=== PATIENT | male | born 1955 | race Caucasian/White ===

== ENCOUNTER 2017-07-06 06:01 | Inpatient (IN) | payer OTHER ==
[2017-06-17 13:43] VITALS: BMI 31.0
--- NOTE | 2017-06-17 14:25 | PAT Medication Instructions ---
Service Date Jun 17, 2017. Current Home Medication List Albuterol Hfa (Ventolin Hfa), 2 PUFFS INH Q6H PRN for SOB/Wheezing Alprazolam (Xanax), 0.5 MG PO DAILY PRN for Anxiety/Agitation Aspirin (Aspirin 81), 1 TAB PO QAM Atorvastatin (Lipitor), 20 MG PO QPM Cetirizine (Zyrtec), 10 MG PO DAILY PRN for sinus congestion Clopidogrel (Plavix), 75 MG PO QAM Cyclobenzaprine Hcl (Flexeril), 1 TAB PO TID PRN for Muscle Spasms Dexlansoprazole (Dexilant), 1 TAB PO QAM Fluoxetine (Prozac), 40 MG PO QAM Gabapentin (Neurontin), 300 MG PO QAM Magnesium Oxide (Mag-Ox), 400 MG PO QAM Sitagliptin Phosphate (Januvia), 100 MG PO QAM Trazodone Hcl (Trazodone), 50 MG PO QPM [allergy shots], 1 DOSE INJ [id number] Medication Instructions For Your Scheduled Surgery -Contact your cardiolgist for instructions for: Clopidogrel (Plavix), 75 MG PO QAM -Continue as directed: [allergy shots], 1 DOSE INJ [id number] - Hold the following medications the morning of surgery: Cetirizine (Zyrtec), 10 MG PO DAILY PRN for sinus congestion Cyclobenzaprine Hcl (Flexeril), 1 TAB PO TID PRN for Muscle Spasms Magnesium Oxide (Mag-Ox), 400 MG PO QAM Sitagliptin Phosphate (Januvia), 100 MG PO QAM - Take the following medications the morning of surgery with a sip of water: Albuterol Hfa (Ventolin Hfa), 2 PUFFS INH Q6H PRN for SOB/Wheezing (if needed, and bring t with you to the hospital) Alprazolam (Xanax), 0.5 MG PO DAILY PRN for Anxiety/Agitation (if needed) Aspirin (Aspirin 81), 1 TAB PO QAM Dexlansoprazole (Dexilant), 1 TAB PO QAM Fluoxetine (Prozac), 40 MG PO QAM Gabapentin (Neurontin), 300 MG PO QAM - Take the following medications as scheduled the night before surgery: Albuterol Hfa (Ventolin Hfa), 2 PUFFS INH Q6H PRN for SOB/Wheezing (if needed) Alprazolam (Xanax), 0.5 MG PO DAILY PRN for Anxiety/Agitation (if needed) Atorvastatin (Lipitor), 20 MG PO QPM Cetirizine (Zyrtec), 10 MG PO DAILY PRN for sinus congestion (if needed) Cyclobenzaprine Hcl (Flexeril), 1 TAB PO TID PRN for Muscle Spasms (if needed) Trazodone Hcl (Trazodone), 50 MG PO QPM If you have any questions please call us at [phone] or [phone] or [phone]
--- NOTE | 2017-06-17 15:02 | DIAGNOSTIC IMAGING REPORT ---
CHEST 2 VIEWS ROUTINE CLINICAL HISTORY: PAT COMPARISON STUDY: No previous studies for comparison. FINDINGS: The heart is normal in size. There are postsurgical changes of a midline sternotomy. There is a small right pleural effusion. Linear bibasilar opacities are likely atelectatic there is no lobar consolidation. There is no overt failure.[ IMPRESSION: 1. Small right pleural effusion 2. Linear bibasilar opacities, likely atelectatic Electronically signed by: Cornelius Altamirano M.D. 06/17/2017 3:01 PM Dictated Date/Time: 06/17/2017 3:00 PM
[2017-06-17 15:50] LABS: BASO % 0.3 %; BASO ABS # 0.02 K/uL (0-0.2); EOS % 4.1 %; EOS ABS # 0.31 K/uL (0-0.5); HEMATOCRIT 40.7 % (42-52); HEMOGLOBIN 13.8 g/dL (14.0-18.0); IG# 0.04 K/uL (0.00-0.02); LYMPH % 20.6 %; LYMPH ABS # 1.54 K/uL (1.2-3.4); MEAN CELL VOLUME 86.8 fL (80-100); MEAN CORPUSCULAR HEMOGLOBIN 29.4 pg (25-34); MEAN CORPUSCULAR HGB CONC 33.9 g/dl (32-36); MEAN PLATELET VOLUME 9.5 fL (7.4-10.4); MONO % 9.5 %; MONO ABS # 0.71 K/uL (0.11-0.59); NEUT ABS # 4.86 K/uL (1.4-6.5); PLATELET COUNT 185 K/uL (130-400); RED CELL DISTRIBUTION WIDTH CV 14.4 % (11.5-14.5); RED CELL DISTRIBUTION WIDTH SD 45.6 fL (36.4-46.3); WHITE BLOOD COUNT 7.48 K/uL (4.8-10.8)
[2017-06-17 15:58] LABS: CREATININE 1.39 mg/dl (0.60-1.40); POTASSIUM 4.3 mmol/L (3.5-5.1)
[2017-07-06] VITALS (10 sets, daily range): BP systolic 95–136; BP diastolic 59–96; PULSE 65–93; TEMP 36.4–36.9; O2SAT 89–95; Ht 175.3 cm; Wt 95.8 kg
[~2017-07-06] VITALS: Ht 175.3 cm; Wt 95.8 kg
[~2017-07-06 06:01] MED LIST: ALPR-411 PO; ASPI-435 PO; ATOR-22 PO; CEFAZOLIN 2000MG IV PUSH 15 ML IV SCH; CETI10TA84 PO; CLOP1TAB15 PO; CYCL10TA6 PO; DEXL60CA4 PO; FLUO20CA35 PO; GABA-113 PO; LACTATED RINGER'S 1000ML 1,000 ML IV SCH; MAGN400T6 PO; SITA100T3 PO; TRAZ50TA35 PO; VNTHFA/IN INH; allergy shots INJ
[2017-07-06] MEDS ORDERED: FENTANYL CITRATE INJ 50 MCG/1 ML 2 ML VIAL ONE ×2 (06:43→08:01)
[2017-07-06] MEDS ORDERED: MIDAZOLAM HCL 1 MG/ML 2ML VIAL ONE (06:43)
[2017-07-06] MEDS ORDERED: BACITRACIN 50000 UNIT VIAL ONE (06:55)
[2017-07-06] MEDS ORDERED: BUPIVACAINE/EPINEPHRINE 0.5% MPF 1:200,000 30 ML VIAL ONE (06:55)
--- NOTE | 2017-07-06 07:27 | History & Physical Bridge Note ---
H&P Re-Evaluation Bridge Note: I have examined the patient, reviewed the History & Physical and in the interval since the performance of the History & Physical I have noted the following changes of clinical significance: No changes noted
--- NOTE | 2017-07-06 07:30 | History and Physical ---
History & Physical Date Jul 06, 2017. Chief Complaint spinal stenosis History of Present Illness The patient is a 61 year old male with complaints of back and leg pain Additional History Hepatic Disease: No Endocrine Disorder: No Kidney Disease: No Hypertension: No Heart Disease: No Bleeding Tendencies: No Infectious Diseases: No Allergies Coded Allergies: No Known Allergies (Unverified , 06/17/17) Home Medications Scheduled Aspirin (Aspirin 81), 1 TAB PO QAM Atorvastatin (Lipitor), 20 MG PO QPM Clopidogrel (Plavix), 75 MG PO QAM Dexlansoprazole (Dexilant), 1 TAB PO QAM Fluoxetine (Prozac), 40 MG PO QAM Gabapentin (Neurontin), 300 MG PO QAM Magnesium Oxide (Mag-Ox), 400 MG PO QAM Sitagliptin Phosphate (Januvia), 100 MG PO QAM Trazodone Hcl (Trazodone), 50 MG PO QPM [allergy shots], 1 DOSE INJ [id number] Scheduled PRN Albuterol Hfa (Ventolin Hfa), 2 PUFFS INH Q6H PRN for SOB/Wheezing Alprazolam (Xanax), 0.5 MG PO DAILY PRN for Anxiety/Agitation Cetirizine (Zyrtec), 10 MG PO DAILY PRN for sinus congestion Cyclobenzaprine Hcl (Flexeril), 1 TAB PO TID PRN for Muscle Spasms Physical Examination Skin: warm/dry, no rash Eyes: normal inspection, EOMI, sclerae normal ENT: normal ENT inspection, pharynx normal Head: normocephalic, atraumatic Neck: supple, no adenopathy, trachea midline Respiratory/Chest: lungs clear, normal breath sounds, no respiratory distress Cardiovascular: regular rate, rhythm, no edema, no murmur Abdomen / GI: normal bowel sounds, non tender Back: normal inspection Extremities: normal inspection, normal range of motion Neurologic/Psych: no motor/sensory deficits, alert, normal reflexes, oriented x 3 Diagnosis spinal stenosis Plan of Treatment L5-S1 decompression and fusion
[2017-07-06] MEDS ORDERED: METOPROLOL TARTRATE 1 MG/ML VIAL ONE ×2 (07:40→08:28)
[2017-07-06] MEDS ORDERED: FENTANYL CITRATE INJ 50 MCG/1 ML 2 ML VIAL IV PRN (08:00)
[2017-07-06] MEDS ORDERED: ATROPINE SULFATE 0.1 MG/ML 5ML SYR IV PRN (08:00)
[2017-07-06] MEDS ORDERED: MEPERIDINE HCL 25 MG/ML CARP IV PRN (08:00)
[2017-07-06] MEDS ORDERED: EpHEDrine SULFATE INJ 50 MG/ML AMP IV PRN (08:00)
[2017-07-06] MEDS ORDERED: HYDROmorphone INJ 1 MG/ML SYR IV PRN (08:00)
[2017-07-06] MEDS ORDERED: ONDANSETRON INJ 2 MG/ML 2 ML VIAL IV PRN ×2 (08:00→09:30)
[2017-07-06] MEDS ORDERED: LABETALOL HCL IV 5 MG/ML 20ML IV PRN (08:00)
[2017-07-06] MEDS ORDERED: HYDROmorphone INJ 2 MG/ML SYR/VIAL ONE ×2 (08:01→09:19)
[2017-07-06] MEDS ORDERED: DEXAMETHASONE SOD INJ 4 MG/ML VIAL ONE (08:28)
[2017-07-06] MEDS ORDERED: PROPOFOL IV EMULSION 10 MG/ML 20 ML VIAL IV ONE (08:28)
[2017-07-06] MEDS ORDERED: LIDOCAINE HCL 2% 2 ML VIAL (20MG/ML) ONE (08:28)
[2017-07-06] MEDS ORDERED: ONDANSETRON INJ 2 MG/ML 2 ML VIAL ONE ×2 (08:28→09:20)
[2017-07-06] MEDS ORDERED: EpHEDrine SULFATE 50MG/5ML SYR ONE ×2 (08:28→09:20)
[2017-07-06] MEDS ORDERED: FLOSEAL HEMOSTATIC MATRIX 10ML TOP ONE (09:08)
[2017-07-06] MEDS ORDERED: NEOSTIGMINE METHYLSULFATE 1 MG/ML 10ML VIAL ONE (09:20)
[2017-07-06] MEDS ORDERED: GLYCOPYRROLATE INJ 0.2 MG/ML VIAL ONE (09:20)
[2017-07-06] MEDS: SODIUM CHLORIDE 0.9% 1000ML 1,000 ML IV SCH ×3 (09:21→23:07)
[2017-07-06] MEDS ORDERED: SODIUM CHLORIDE 0.9% 1000ML 1,000 ML IV SCH (09:21)
--- NOTE | 2017-07-06 09:21 | [facility] Operative Report ---
Operative Report Operative Date Jul 06, 2017. Pre-Operative Diagnosis Spinal Stenosis Post-Operative Diagnosis Spinal Stenosis Procedure(s) Performed #1 lumbar decompression medial facetectomy foraminotomies L4 5 L5-S1. #2 posterior spinal fusion L5-S1. #3 placement posterior instrumentation L5-S1. #4 interbody fusion L5-S1. #5 placement peek cage 11 x 22 mm L5-S1. #6 placement of locally harvested morcellized autograft in the posterior lateral gutters. #7 placement infuse collagen sponge combined mass graft in the posterior lateral gutters and osteo-lamp bone graft in the interbody space. Surgeon Renewable Energy Engineer Surgeon(s) Josselyn Goetz PA-C Estimated Blood Loss 25ML Findings Spinal stenosis Specimens None per surgeon Anesthesia Type General Description of Procedure Patient was met with preoperatively case discussed all questions addressed. After informed consent obtained patient was taken to the operative suite underwent intubation and placed in a prone position on the Ismael table on top of the Delfin frame. All bony prominences were well-padded the eyes inspected to ensure no external pressure placed upon them. This point the lumbar spine was prepped and draped in normal sterile fashion. Sharp dissection with the assistance of Bovie cautery was performed onto an exposing the lamina and transverse processes of L5 and sacral alar bilaterally. From a caudal to cephalad fashion complete laminectomy of L5 partial laminectomy of L4 was performed addressing severe lateral recess and foraminal stenosis. After this complete pedicle screws were placed in L5 and S1 levels bilaterally. The processes alfredito was then placed. Through a transforaminal approach and left complete discectomy of L5 S1 was performed endplates graded to subcortical bleeding bone and a 11 x 22 mm peek cage filled with osteal bone graft tapped in position. The rods were then locked in the final position bilaterally. The transverse processes of L5 and the sacral alar burred to subcortical bleeding bone. Infuse collagen sponge mass graft and locally harvested morcellized R graft was placed in the posterior lateral gutters. A 15 round KRAIG drain inserted. Incision was then closed with 1 Vicryl in the fascia 2-0 Vicryl subcutaneously and 4-0 Monocryl for final skin closure Steri-Strips dressings placed. Patient awakened taken PACU stable condition. Please note Josselyn Linn was present at the entire procedure involved in patient positioning complex portions of the surgery and final skin closure. I attest to the content of the Intraoperative Record and any orders documented therein. Any exceptions are noted below.
[2017-07-06] MEDS ORDERED: PROMETHAZINE HCL INJ 12.5 MG in SODIUM CHLORIDE 0.9% 50ML 50 ML IV PRN (09:30)
[2017-07-06] MEDS ORDERED: METOCLOPRAMIDE HCL INJ 5 MG/ML 2 ML VIAL IV PRN (09:30)
[2017-07-06] MEDS ORDERED: ALUMINUM/MAGNESIUM SUSP 30 ML UDC PO PRN (09:30)
[2017-07-06] MEDS ORDERED: NALOXONE HCL 0.4 MG/1 ML VIAL/CARP IV PRN ×2 (09:30)
[2017-07-06] MEDS ORDERED: CETIRIZINE HCL 10 MG TAB PO PRN (09:30)
[2017-07-06] MEDS ORDERED: LORAZEPAM 0.5 MG TAB PO PRN (09:30)
[2017-07-06] MEDS ORDERED: MAGNESIUM HYDROXIDE SUSP 30 ML UDC PO PRN (09:30)
[2017-07-06] MEDS ORDERED: DO NOT ADMINISTER FLU VACCINE PRN (09:30)
[2017-07-06] MEDS ORDERED: SOD PHOSPHATE/SOD BIPHOSPHATE ENEMA 132 ML BTL PR PRN (09:30)
[2017-07-06] MEDS ORDERED: hydrOXYzine HCL 25 MG TAB PO PRN (09:30)
[2017-07-06] MEDS ORDERED: LORAZEPAM INJ 0.5 MG in SYRINGE 0 ML IV PRN (09:30)
[2017-07-06] MEDS ORDERED: DO NOT ADMINISTER PNEUMOCOCCAL VACCINE PRN (09:30)
[2017-07-06] MEDS ORDERED: BISACODYL 10 MG SUPP PR PRN (09:30)
[2017-07-06] MEDS ORDERED: ACETAMINOPHEN 500 MG TAB PO PRN (09:30)
[2017-07-06] MEDS ORDERED: FAMOTIDINE 20 MG TAB PO PRN (09:30)
[2017-07-06] MEDS ORDERED: ACETAMINOPHEN IV 100 ML IV PRN (09:30)
[2017-07-06] MEDS ORDERED: ALBUTEROL HFA 8 GM INHALER INH PRN (09:30)
[2017-07-06] MEDS ORDERED: HYDROmorphone HCL 0.5MG/ML 50 ML CASSETTE ONE (09:38)
--- NOTE | 2017-07-06 10:06 | DIAGNOSTIC IMAGING REPORT ---
INTRAOPERATIVE RADIOGRAPHS CLINICAL HISTORY: L5-S1 spinal fusion. Fluoroscopy time: 24 seconds. FINDINGS: 2 spot fluoroscopic views of the lumbar spine are presented. There has been discectomy at L5-S1 with laminectomy and posterior fusion at this level. Interpedicular screws are seen at both levels. The orthopedic hardware appears intact. An aortobiiliac stent graft is incidentally noted. IMPRESSION: Intraoperative image from L5 -S1 spinal fusion as above. Electronically signed by: Rolando Sutton M.D. 07/06/2017 10:05 AM Dictated Date/Time: 07/06/2017 10:04 AM
[2017-07-06] MEDS ORDERED: ROCURONIUM BROMIDE 10 MG/ML 5 ML VIAL IV ONE (10:31)
[2017-07-06] MEDS: HYDROmorphone HCL 0.5MG/ML 50 ML CASSETTE IV PRN ×3 (10:41→19:10)
--- NOTE | 2017-07-06 10:43 | Anesthesiology Progress Note ---
Anesthesia Post Op Note Date & Time Jul 06, 2017 at 10:43 Vital Signs Pain Intensity: 0 Vital Signs Past 12 Hours Date Time Temp Pulse Resp B/P (MAP) Pulse Ox O2 Delivery O2 Flow Rate FiO2 07/06/17 10:23 36.5 81 15 111/69 93 Nasal Cannula 4 07/06/17 10:20 36.4 07/06/17 10:16 122/69 07/06/17 10:15 86 15 07/06/17 10:15 86 15 96 07/06/17 10:11 123/73 07/06/17 10:10 85 10 96 07/06/17 10:10 85 10 07/06/17 10:06 111/71 07/06/17 10:05 82 13 07/06/17 10:05 81 13 95 07/06/17 10:01 129/70 07/06/17 10:00 86 19 94 07/06/17 10:00 86 19 07/06/17 09:56 124/83 07/06/17 09:55 85 10 07/06/17 09:55 85 10 94 07/06/17 09:51 115/81 07/06/17 09:50 86 10 07/06/17 09:50 85 10 93 07/06/17 09:46 149/79 07/06/17 09:45 88 12 07/06/17 09:45 88 12 95 07/06/17 09:41 130/93 07/06/17 09:40 91 10 07/06/17 09:40 90 10 91 07/06/17 09:36 123/86 07/06/17 09:35 87 12 146/89 93 07/06/17 09:35 88 12 07/06/17 09:30 36.4 89 16 156/89 92 Oxymask 10 07/06/17 07:16 36.6 65 20 136/96 95 Room Air Notes Mental Status: alert / awake / arousable, participated in evaluation Pt Amnestic to Procedure: Yes Nausea / Vomiting: adequately controlled Pain: adequately controlled Airway Patency, RR, SpO2: stable & adequate BP & HR: stable & adequate Hydration State: stable & adequate Anesthetic Complications: no major complications apparent
[2017-07-06] MEDS ORDERED: RXC5 PO (14:19)
--- NOTE | 2017-07-06 14:20 | Discharge Instructions ---
Discharge Instructions Date of Service Jul 06, 2017. Admission Reason for Admission: Spinal Stenosis Discharge Discharge Diagnosis / Problem: lumbar stenosis Discharge Goals Goal(s): Improve function Activity Recommendations Activity Limitations: as noted below . Instructions / Follow-Up Instructions / Follow-Up ACTIVITY RECOMMENDATIONS: SELF CARE INSTRUCTIONS AFTER THORACIC/LUMBAR FUSIONS 1. You may walk to your tolerance. It is good exercise for your legs and back. Expect some back and intermittent leg aches and pains. 2. You may perform "counter-top" level activities (make a sandwich, chiqui with a project, etc.). 3. No bending or lifting of more than 10 pounds or back twisting of any nature (roll like a log when turning in bed). 4. You may ride in a car for 20-30 minutes at a time. No driving until after your first visit with your doctor. 5. Frequent changes of position and restricting sitting to 30 minutes at a time will help limit the amount of back spasms and stiffness you may experience. 6. You may discontinue the use of ambulatory aids (cane, crutches, etc.) once your strength and confidence allow. 7. You may advertising manager the shower and let water strike your incision when you arrive home at least once daily. Do not take a tub bath, sit in a hot tub or go into a swimming pool until after your first recheck in the office. SPECIAL CARE INSTRUCTIONS: VERY IMPORTANT TO READ AND REVIEW A. Your surgical incision has been closed with a cosmetic suture under the skin that will dissolve in about 6 weeks. In 14 days, you can use a pair of clean scissors and cut the suture that is left outside of the skin at the ends of your incision. 1. The small skin tapes can be removed 7 days after surgery if they have not fallen off by that point. 2. You may keep the wound open to air as much as possible to promote healing after post-op day number 5 unless told otherwise by your doctor. 3. If you think the wound looks like it is becoming infected (redness or worsening drainage) and/or you are experiencing fever, chill or worsening back pain and muscle spasms, contact the office so that we may evaluate you as soon as possible. B. Complications are uncommon, but please contact us if you have any signs or symptoms of: 1. wound infection (fever higher than 102.5 degrees F, redness, separation of wound, drainage, or increasing pain from the incision) 2. blood clots in legs (pain, swelling, redness and warmth in legs) 3. urinary tract infection (fever higher than 102.5 degrees F, burning upon urination or increased frequency of urination) 4. nerve problems (inability to walk on your toes or heels, numbness, loss of bowel or bladder control) 5. any other symptoms that concern you C. Please call the office at if you have any concerns or questions about your operation or recovery. D. No smoking! Smoking drastically decreases the chance of a solid fusion. E. Do not take any anti-inflammatory medications (Indocin, Advil, Motrin, Aspirin, Naprosyn, etc.) as these may inhibit the chance of a solid fusion. Tylenol is okay to take for pain. MANAGING PAIN AFTER SPINAL SURGERY 1. Narcotic medication is intended for short-term use and will be provided for surgical pain. Surgical pain usually lasts for a period of 4-6 weeks. Narcotic medication includes Percocet, Vicodin, Darvocet, Tylenol #3 or Lortab. 2. Longer-term pain is more appropriately treated with non-narcotic medication such as Tylenol ES. 3. Muscle spasm is not appropriately treated with narcotics. Muscle relaxers such as Soma, Flexeril or Skelaxin can be used along with Tylenol ES. 4. Remember that we all live with some "aches and pains". This is not unusual or uncommon after an injury or as we get older. a. Back pain is expected and may include muscle spasms for 4 to 6 weeks after surgery. The pain should gradually improve. If the pain worsens for no apparent reason, please contact the office. b. Intermittent leg pain may also be experienced and should not be concerned about unless it worsens for no apparent reason. If so, please contact the office. 5. We will provide appropriate medication within the normal guidelines of their prescribed use. We will also be very cautious and aware of potential abuse and extended duration of patients' medication needs. a. Pain medications are for your comfort and to assist with sleep and rest so that the tissue can heal. They are not provided in order to return to normal activity and should not be used through the day. To do so or worsening pain at night can result from ongoing tissue damage and development of tolerance to the prescribed medicine. 6. Please allow 2-3 days to process refills. Prescriptions will not be mailed but must be picked up at the office. FOLLOW UP VISIT: Keep your scheduled follow-up appointment. Any questions, please call the office at . Current Hospital Diet Patient's current hospital diet: Diabetes Type 2 Diet Discharge Diet Recommended Diet: Regular Diet Procedures Procedures Performed: #1 lumbar decompression medial facetectomy foraminotomies L4 5 L5-S1. #2 posterior spinal fusion L5-S1. #3 placement posterior instrumentation L5-S1. #4 interbody fusion L5-S1. #5 placement peek cage 11 x 22 mm L5-S1. #6 placement of locally harvested morcellized autograft in the posterior lateral gutters. #7 placement infuse collagen sponge combined mass graft in the posterior lateral gutters and osteo-lamp bone graft in the interbody space. Pending Studies Studies pending at discharge: no Medical Emergencies . Who to Call and When: Medical Emergencies: If at any time you feel your situation is an emergency, please call 911 immediately. . Non-Emergent Contact Non-Emergency issues call your: Primary Care Provider . "Provider Documentation" section prepared by Zacarisa Cortes. .
[2017-07-06] MEDS: CEFAZOLIN IV 2,000 MG in SYRINGE 0 ML IV SCH ×2 (15:51→23:15)
[2017-07-06] MEDS: DOCUSATE SODIUM/SENNA 50/8.6MG TAB PO SCH (21:10)
[2017-07-06] MEDS: TRAZODONE HCL 50 MG TAB PO SCH (21:11)
[2017-07-06] MEDS: ATORVASTATIN 20 MG TAB PO SCH (21:11)
[2017-07-07] VITALS (7 sets, daily range): BP systolic 93–144; BP diastolic 56–72; PULSE 65–94; TEMP 36.4–37.2; O2SAT 88–95
[2017-07-07] MEDS ORDERED: HYDROmorphone INJ 0.5 MG/0.5 ML SYR IV PRN (06:00)
[2017-07-07] MEDS ORDERED: NURSING VERBAL MED ORDER ONE (06:00)
[2017-07-07] MEDS ORDERED: DC PCA SCH (06:00)
[2017-07-07] MEDS ORDERED: HYDROmorphone INJ 1 MG/ML SYR IV PRN (06:00)
[2017-07-07 06:20] LABS: EOS % 0.1 %; EOS ABS # 0.01 K/uL (0-0.5); HEMATOCRIT 36.7 % (42-52); HEMOGLOBIN 12.1 g/dL (14.0-18.0); IG# 0.07 K/uL (0.00-0.02); LYMPH % 9.4 %; LYMPH ABS # 1.38 K/uL (1.2-3.4); MEAN CELL VOLUME 88.6 fL (80-100); MEAN CORPUSCULAR HEMOGLOBIN 29.2 pg (25-34); MEAN PLATELET VOLUME 9.2 fL (7.4-10.4); MONO % 9.3 %; MONO ABS # 1.36 K/uL (0.11-0.59); NEUT % 80.7 %; PLATELET COUNT 187 K/uL (130-400); RED CELL DISTRIBUTION WIDTH CV 14.4 % (11.5-14.5); RED CELL DISTRIBUTION WIDTH SD 47.3 fL (36.4-46.3); WHITE BLOOD COUNT 14.62 K/uL (4.8-10.8)
[2017-07-07 06:56] LABS: CALCIUM 8.4 mg/dl (8.5-10.1); CREATININE 1.44 mg/dl (0.60-1.40); POTASSIUM 3.6 mmol/L (3.5-5.1)
--- NOTE | 2017-07-07 07:57 | Anesthesiology Progress Note ---
Anesthesia Post Op Note Date & Time Jul 07, 2017 at 07:57 Vital Signs Pain Intensity: 5 Vital Signs Past 12 Hours Date Time Temp Pulse Resp B/P (MAP) Pulse Ox O2 Delivery O2 Flow Rate FiO2 07/07/17 07:01 36.5 92 18 93/56 (68) 90 Room Air 07/07/17 03:28 94 Nasal Cannula 2.0 07/07/17 03:28 37.0 69 16 103/62 (76) 88 Room Air 07/06/17 23:38 36.8 87 17 101/59 (73) 91 Room Air Notes Mental Status: alert / awake / arousable Pt Amnestic to Procedure: Yes Nausea / Vomiting: adequately controlled Pain: improving with treatment Airway Patency, RR, SpO2: stable & adequate BP & HR: stable & adequate Hydration State: stable & adequate Anesthetic Complications: no major complications apparent
[2017-07-07] MEDS: ASPIRIN 81 MG ECTAB PO SCH (08:42)
[2017-07-07] MEDS: FLUOXETINE HCL 20 MG CAP PO SCH (08:42)
[2017-07-07] MEDS: SITAGLIPTIN 100 MG TAB PO SCH (08:42)
[2017-07-07] MEDS: MAGNESIUM OXIDE 400 MG TAB PO SCH (08:43)
[2017-07-07] MEDS: GABAPENTIN 300 MG CAP PO SCH (08:43)
[2017-07-07] MEDS: OXYCODONE HCL IR 5 MG TAB (IMMEDIATE RELEASE) PO PRN (08:48)
--- NOTE | 2017-07-07 11:44 | Progress Note ---
Progress Note Date of Service Jul 07, 2017. Progress Note Back pain is controlled. Leg pain improved. Vital signs stable. On exam his good strength testing appears comfortable. Assessment status post lumbar compression and fusion for plan at this time will continue physical therapy monitor his KRAIG output anticipate possible home tomorrow.
[2017-07-07] MEDS: CYCLOBENZAPRINE HCL 10 MG TAB PO PRN ×2 (13:57→20:37)
[2017-07-07] MEDS: KETOROLAC TROMETHAMINE 30 MG/ML VIAL IV PRN (13:59)
[2017-07-07] MEDS: TRAZODONE HCL 50 MG TAB PO SCH (20:37)
[2017-07-07] MEDS: DOCUSATE SODIUM/SENNA 50/8.6MG TAB PO SCH (20:37)
[2017-07-07] MEDS: ATORVASTATIN 20 MG TAB PO SCH (20:37)
[2017-07-08] VITALS (13 sets, daily range): BP systolic 108–137; BP diastolic 63–79; PULSE 71–104; TEMP 36.5–37.1; O2SAT 85–96
[2017-07-08] MEDS: CYCLOBENZAPRINE HCL 10 MG TAB PO PRN (04:53)
[2017-07-08] MEDS: OXYCODONE HCL IR 5 MG TAB (IMMEDIATE RELEASE) PO PRN (04:54)
[2017-07-08] MEDS: POLYETHYLENE (MIRALAX) 17 GM PACK PO SCH ×4 (06:31→23:59)
[2017-07-08] MEDS: GABAPENTIN 300 MG CAP PO SCH (07:26)
[2017-07-08] MEDS: SITAGLIPTIN 100 MG TAB PO SCH (07:27)
[2017-07-08] MEDS: MAGNESIUM OXIDE 400 MG TAB PO SCH (07:27)
[2017-07-08] MEDS: ASPIRIN 81 MG ECTAB PO SCH (07:27)
[2017-07-08] MEDS: FLUOXETINE HCL 20 MG CAP PO SCH (07:28)
[2017-07-08] MEDS: KETOROLAC TROMETHAMINE 30 MG/ML VIAL IV PRN (07:36)
--- NOTE | 2017-07-08 12:18 | DIAGNOSTIC IMAGING REPORT ---
CHEST ONE VIEW PORTABLE HISTORY: 61 years-old Male HYPOXIA acute hypoxia with history of spinal stenosis COMPARISON: Chest radiographs 06/17/2017 TECHNIQUE: Portable AP view of the chest FINDINGS: Cardiac silhouette is again enlarged, unchanged. Prior median sternotomy with surgical clips projecting over the left heart border. No pneumothorax or overt pulmonary edema. Persistent blunting of the right costophrenic angle suggests small pleural effusion with unchanged linear subsegmental midlung and bibasilar opacities suggesting atelectasis/scarring. Bones of the chest appear grossly intact. Calcifications project over the right axillary soft tissues. IMPRESSION: 1. No acute process. 2. Unchanged linear subsegmental bibasilar opacities suggesting atelectasis or scarring with persistent blunting of the right costophrenic angle, possibly reflecting a small right pleural effusion. The above report was generated using voice recognition software. It may contain grammatical, syntax or spelling errors. Electronically signed by: Serge Kincaid M.D. 07/08/2017 12:16 PM Dictated Date/Time: 07/08/2017 12:14 PM
--- NOTE | 2017-07-08 12:49 | Medical Consult ---
Consultation Date of Consultation: Jul 08, 2017. Attending Physician: Zacarias Cortes D.O. Reason for Consultation: hypoxemia History of Present Illness 61-year-old man with past medical history of CAD status post CABG, multiple stents last stent was about 3 years ago. Also patient has dyslipidemia and diabetes mellitus type 2 on oral hypoglycemics. Patient complained of severe lower back pain failed outpatient conservative management and presented to the hospital yesterday for an elective L5-S1 decompression and fusion Procedure went uneventful. Patient today was found by the nursing staff to have hypoxemia oxygen saturation 84 on room air and his lips were blue as per nursing staff. He was placed on oxygen 2 L oxygen saturation went to 95%. Patient slowly developed some lethargy. He is arousable but seems to be slightly lethargic. Answers all questions appropriately. And does not have any complaint at this point. Social History Smoking Status: Current Some Day Smoker Allergies Coded Allergies: No Known Allergies (Unverified , 06/17/17) Current Inpatient Medications Current Inpatient Medications Medications (Trade) Dose Ordered Sig/Zenon Route Start Time Stop Time Status Last Admin Dose Admin Promethazine HCl 12.5 mg/Sodium Chloride 50.5 ml @ 202 mls/hr Q6H PRN IV 07/06/17 09:30 08/05/17 09:29 Ondansetron HCl (Zofran Inj) 4 mg Q6H PRN IV 07/06/17 09:30 08/05/17 09:29 Metoclopramide HCl (Reglan Inj) 10 mg Q6H PRN IV 07/06/17 09:30 08/05/17 09:29 Lorazepam (Ativan Tab) 0.5 mg Q8H PRN PO 07/06/17 09:30 08/05/17 09:29 Lorazepam 0.5 mg/ Syringe 0.25 ml @ 1 mls/min Q8H PRN IV 07/06/17 09:30 08/05/17 09:29 Pneumococcal Polysaccharide Vaccine 1 ea PRN PRN N/A 07/06/17 09:30 08/05/17 09:29 Influenza Virus Vacc Triv Types A&B 1 ea PRN PRN N/A 07/06/17 09:30 08/05/17 09:29 Polyethylene (Miralax Powder Packet) 17 gm Q6 PO 3/14/18 06:00 08/07/17 05:59 07/08/17 06:31 17 GM Bisacodyl (Dulcolax Supp) 10 mg DAILY PRN TX 07/06/17 09:30 08/05/17 09:29 Magnesium Hydroxide (Milk Of Magnesia Susp) 30 ml DAILY PRN PO 07/06/17 09:30 08/05/17 09:29 Hydromorphone HCl (Dilaudid Inj) 0.5 mg Q3H PRN IV 07/07/17 06:00 07/21/17 05:59 Oxycodone HCl (Roxicodone Immediate Rel Tab) 5-10mg prn moderate to sev... Q4H PRN PO 07/07/17 06:00 07/21/17 05:59 07/08/17 04:54 10 MG Acetaminophen (Tylenol Tab) 1,000 mg Q8H PRN PO 07/06/17 09:30 08/05/17 09:29 Acetaminophen 100 ml @ 400 mls/hr Q8H PRN IV 07/06/17 09:30 08/05/17 09:29 Naloxone HCl (Narcan Inj) 0.1 mg Q5M PRN IV 07/06/17 09:30 08/05/17 09:29 Senna/Docusate Sodium (Senokot S Tab) 2 tab HS PO 07/06/17 21:00 08/05/17 20:59 07/07/17 20:37 2 TAB Sodium Biphosphate/ Sodium Phosphate (Fleet Enema) 132 ml ONE PRN TX 07/06/17 09:30 08/05/17 09:29 Hydroxyzine HCl (Vistaril Tab) 25 mg Q8H PRN PO 07/06/17 09:30 08/05/17 09:29 Al Hydroxide/Mg Hydroxide (Maalox Susp) 30 ml Q6H PRN PO 07/06/17 09:30 08/05/17 09:29 Famotidine (Pepcid Tab) 20 mg Q12H PRN PO 07/06/17 09:30 08/05/17 09:29 Diphenhydramine HCl (Benadryl Cap) 25 mg Q6H PRN PO 07/06/17 09:30 08/05/17 09:29 Albuterol (Ventolin Hfa Inhaler) 2 puffs Q6H PRN INH 07/06/17 09:30 08/05/17 09:29 Aspirin (Ecotrin Tab) 81 mg QAM PO 07/07/17 09:00 08/06/17 08:59 07/08/17 07:27 81 MG Atorvastatin Calcium (Lipitor Tab) 20 mg QPM PO 07/06/17 21:00 08/05/17 20:59 07/07/17 20:37 20 MG Cetirizine HCl (zyrTEC TAB) 10 mg DAILY PRN PO 07/06/17 09:30 08/05/17 09:29 Cyclobenzaprine HCl (Flexeril Tab) 10 mg TID PRN PO 07/06/17 09:30 08/05/17 09:29 07/08/17 04:53 10 MG Fluoxetine HCl (Prozac Cap) 40 mg QAM PO 07/07/17 09:00 08/06/17 08:59 07/08/17 07:28 40 MG Gabapentin (Neurontin Cap) 300 mg QAM PO 07/07/17 09:00 08/06/17 08:59 07/08/17 07:26 300 MG Magnesium Oxide (Mag-Ox Tab) 400 mg QAM PO 07/07/17 09:00 08/06/17 08:59 07/08/17 07:27 400 MG Sitagliptin Phosphate (Januvia Tab) 100 mg QAM PO 07/07/17 09:00 08/06/17 08:59 07/08/17 07:27 100 MG Trazodone HCl (Desyrel Tab) 50 mg QPM PO 07/06/17 21:00 08/05/17 20:59 07/07/17 20:37 50 MG Hydromorphone HCl (Dilaudid Inj) 1 mg Q3H PRN IV 07/07/17 06:00 07/21/17 05:59 Ketorolac Tromethamine (Toradol Inj) 30 mg Q6H PRN IV 07/07/17 11:45 07/12/17 11:44 07/08/17 07:36 30 MG Review of Systems Review of system Constitutional: No fever / no chills / no sweats / no weakness / no fatigue Eyes: no blurring of vision / no eye pain / no discharge / no redness ENT: no hearing loss / no epistaxis /no swallowing problems Respiratory: no cough / no wheezing / no SOB / no hemoptysis Cardiovascular: no Chest pain / no lower extremity edema / no palpitation Abdomen: no pain / no nausea / no vomiting / no constipation Musculoskeletal: no joint pain / no muscle pain / no joint swelling Genitourinary: no dysuria / no incontinence / no urinary retention Neurologic: no focal weakness / no numbness/tingling / no ataxia Psychiatric: no depression symptoms / no anxiety / no insomnia Endocrine: no excessive thirst / no excessive urination Hematologic: no abnormal bleeding / no bruising / no LN swelling Skin: No rash / no pallor Physical Exam Date Time Temp Pulse Resp B/P (MAP) Pulse Ox O2 Delivery O2 Flow Rate FiO2 07/08/17 12:06 36.7 72 16 117/71 (86) 92 Nasal Cannula 3.0 07/08/17 11:45 87 Room Air 07/08/17 10:55 93 Nasal Cannula 2.0 07/08/17 10:14 78 86 07/08/17 07:54 37.0 90 14 123/74 (90) 93 Nasal Cannula 2.0 07/08/17 07:18 83 94 Nasal Cannula 2.0 07/08/17 07:15 102 85 Room Air 07/08/17 07:15 Room Air 07/08/17 06:45 37.1 104 19 108/63 (78) 91 Nasal Cannula 4.0 07/07/17 23:14 Room Air 07/07/17 23:07 37.1 94 16 144/72 (96) 91 Room Air 07/07/17 17:05 37.2 81 16 107/58 (74) 90 Room Air 07/07/17 15:35 90 Room Air Physical examination General patient appears to be comfortable, not in acute distress, obese HEENT: Atraumatic , normocephalic /no jaundice /no pallor /anicteric /no dry mucous membrane /normal external ear inspection Neck: Supple /no swelling /central trach Heart: S1/S2 normal/regular rate and rhythm/no gallop /no rub /no murmur Lungs: Decreased air entry bilaterally and decreased chest wall expansion/no rhonchi/no rales/no wheezing/no use of accessory muscles of respiration Abdomen: Soft/nontender/no guarding/no rebound/no organomegaly/no pulsatile mass Musculoskeletal: No swelling/no edema/no tenderness/normal range of motion Neuro exam: Lethargic but easily arousable, oriented 3/cranial nerves II through XII appear to be intact/sensation intact/moves all extremities/no abnormal movements Psychiatric evaluation: No depressed mood/normal affect Skin: No rash on exposed skin area/no erythema Extremity: Normal pulse/no pitting edema/no clubbing or cyanosis Endocrine/lymphatic: No obvious lymphadenopathy /no lymphedema Laboratory Results Last 24 Hours Test 07/07/17 17:10 07/07/17 20:36 07/08/17 06:40 07/08/17 12:02 Bedside Glucose 152 mg/dl 104 mg/dl 104 mg/dl 108 mg/dl Test 07/08/17 12:32 Assessment & Plan 61-year-old man with past medical history of CAD status post CABG, multiple stents last for 3 years ago, patient also has dyslipidemia and diabetes mellitus type 2 on oral hypoglycemic, patient was diagnosed with sleep apnea but noncompliant with CPAP machine. Status post L5-S1 decompression and fusion , was found to be hypoxic and slightly lethargic today. Assessment Lumbar DJD status post L5-S1 decompression and fusion postoperative day #1 Lethargy/metabolic encephalopathy secondary to below Acute hypoxic respiratory failure secondary to below Underlying obstructive sleep apnea, obesity hypoventilation syndrome and COPD Possible underlying congestive heart failure unspecified CAD status post CABG and multiple stents last worked 3 years ago Morbid obesity Dyslipidemia Plan Status post orthopedic procedure, went uneventful full postoperative day #1 Patient tolerated procedure well with minimal blood loss As patient appears to be chronic retainer, he possibly has CO2 narcosis, will decrease oxygen supplement to saturation 90-93% only, will start patient on BiPAP and transferred to telemetry We will also check patient ABG, CT head, TSH and ammonia levels We will hold hypoglycemic medications, start patient on sliding scale insulin Obtain 2D echo and serial cardiac enzymes When okay with primary orthopedic team, patient should be started on Plavix, since last stent was 3 years ago, it is okay not to take Plavix for a few days but as soon as primary team allows will restart it Follow-up labs Ensure adequate oral/parenteral intake Pain management Physical therapy initiation as per primary orthopedic team DVT prophylaxis as per the choice of primary orthopedic team 35 minutes of critical care time was spent on this encounter
[2017-07-08 14:09] LABS: CHOLESTEROL 147 mg/dl (0-200); LDL CHOLESTEROL CALCULATED 85 mg/dl
--- NOTE | 2017-07-08 14:29 | DIAGNOSTIC IMAGING REPORT ---
HEAD WITHOUT CONTRAST (CT) CT DOSE: 655.73 mGy.cm HISTORY: Mental status change lethargy TECHNIQUE: Multiaxial CT images of the head were performed without the use of intravenous contrast. A dose lowering technique was utilized adhering to the principles of ALARA. Comparison: None. Findings: The paranasal sinuses and mastoid air cells are clear. The calvarium and skull base are intact. The ventricles and sulci are within normal limits. There is no mass, hematoma, midline shift, or acute infarct. Impression: No acute intracranial abnormality. The above report was generated using voice recognition software. It may contain grammatical, syntax or spelling errors. Electronically signed by: Hill Quezada M.D. 07/08/2017 2:28 PM Dictated Date/Time: 07/08/2017 2:27 PM
--- NOTE | 2017-07-08 16:01 | Progress Note ---
Progress Note Date of Service Jul 08, 2017. Progress Note Patient's back pain is still limiting. He states his leg symptoms are improved. On exam at this time is alert and oriented has good strength testing. Assessment status post lumbar decompression fusion. Plan at this time is pulse ox is below 90 on room air. We will be consulting the hospitalist service for further evaluation.
[2017-07-08] MEDS: ATORVASTATIN 20 MG TAB PO SCH (20:15)
[2017-07-08] MEDS: TRAZODONE HCL 50 MG TAB PO SCH (20:16)
[2017-07-08] MEDS: DOCUSATE SODIUM/SENNA 50/8.6MG TAB PO SCH (20:16)
[2017-07-09] VITALS (8 sets, daily range): BP systolic 116–128; BP diastolic 66–78; PULSE 75–89; TEMP 36.6–37; O2SAT 87–97
[2017-07-09 05:54] LABS: BASO % 0.2 %; BASO ABS # 0.02 K/uL (0-0.2); EOS % 3.6 %; EOS ABS # 0.36 K/uL (0-0.5); HEMATOCRIT 40.3 % (42-52); HEMOGLOBIN 12.8 g/dL (14.0-18.0); IG# 0.04 K/uL (0.00-0.02); LYMPH % 16.6 %; LYMPH ABS # 1.65 K/uL (1.2-3.4); MEAN CORPUSCULAR HEMOGLOBIN 28.6 pg (25-34); MEAN CORPUSCULAR HGB CONC 31.8 g/dl (32-36); MEAN PLATELET VOLUME 9.7 fL (7.4-10.4); MONO % 13.8 %; MONO ABS # 1.37 K/uL (0.11-0.59); NEUT % 65.4 %; NEUT ABS # 6.49 K/uL (1.4-6.5); PLATELET COUNT 184 K/uL (130-400); RED CELL DISTRIBUTION WIDTH CV 14.4 % (11.5-14.5); WHITE BLOOD COUNT 9.93 K/uL (4.8-10.8)
[2017-07-09] MEDS: POLYETHYLENE (MIRALAX) 17 GM PACK PO SCH ×2 (06:01→12:59)
[2017-07-09 06:37] LABS: ALBUMIN 3.1 gm/dl (3.4-5.0); CALCIUM 8.6 mg/dl (8.5-10.1); CREATININE 1.3 mg/dl (0.60-1.40); POTASSIUM 4.2 mmol/L (3.5-5.1); TOTAL PROTEIN 6.9 gm/dl (6.4-8.2)
[2017-07-09 07:45] LABS: HEMOGLOBIN A1C 7.2 % (4.5-5.6)
[2017-07-09] MEDS: ASPIRIN 81 MG ECTAB PO SCH (08:28)
[2017-07-09] MEDS: GABAPENTIN 300 MG CAP PO SCH (08:28)
[2017-07-09] MEDS: MAGNESIUM OXIDE 400 MG TAB PO SCH (08:28)
[2017-07-09] MEDS: FLUOXETINE HCL 20 MG CAP PO SCH (08:29)
--- NOTE | 2017-07-09 09:52 | Discharge Summary ---
Orthopedic Discharge Summary Admission Date/Reason Jul 06, 2017 at 07:30 Spinal Stenosis. Discharge Date/Disposition Jul 09, 2017 Home Diagnosis Principal Diagnosis: Lumbar spinal stenosis Admission Physical Exam As per Admitting History & Physical. Hospital Course Patient underwent lumbar decompression fusion tolerated this well was taken to the orthopedic floor postoperatively. Postop day #1 he was up and amatory progressive postop day #2. There were some incidents of decreased pulse ox measurements and subsequently was transferred to the PCU overnight. Appears to be stable. Lab studies within normal limits. Subsequently discharged home. Discharge orders and instructions found on the chart for further review. Discharge Instructions Please refer to the electronic Patient Visit Report (Discharge Instructions) for additional information.
--- NOTE | 2017-07-09 09:53 | Progress Note ---
Progress Note Date of Service Jul 09, 2017. Progress Note Patient appears quite comfortable this morning. He denies any significant back or leg pain. He states he feels overall markedly improved. In exam is good strength testing appears comfortable. Assessment status post lumbar decompression fusion. Plan at this time with medical clearance will allow him to discharge home today in follow-up in the office in 2 weeks as scheduled.
--- NOTE | 2017-07-09 13:50 | ECHOCARDIOGRAM REPORT ---
*NOTICE TO RECEIVING [employer] This information is strictly Confidential and protected under [place] law. [place] law prohibits you from making any further disclosure of this information unless further disclosure is expressly permitted by the written consent of the person to whom it pertains or is authorized by law. A general authorization for the release of medical or other information is not sufficient for this purpose. Hospital accepts no responsibility if the information is made available to any other person, INCLUDING THE PATIENT. Interpretation Summary * Name: JEANNIE MIR Study Date: 07/09/2017 09:01 AM BP: 117/71 mmHg * Patient Location: C.2T\S\E218\S\1 HR: 72 * : 1955 (M/d/yyyy) Gender: Male Height: 69 in * Age: 61 yrs Ethnicity: [place] Weight: 211 lb * Ordering Physician: Higinio Gomez * Referring Physician: Zacarias Cortes D.O. * Performed By: Mar Black RDCS * * Reason For Study: Congestive Heart Failure * BSA: 2.1 m2 * -- Conclusions -- * Left ventricular systolic function is normal. * Grade I diastolic dysfunction, (abnormal relaxation pattern). Procedure Details * A complete two-dimensional transthoracic echocardiogram was performed (2D, M-mode, Doppler and color flow Doppler). Left Ventricle * The left ventricle is normal in size. * There is normal left ventricular wall thickness. * Ejection Fraction = 60-65%. * Left ventricular systolic function is normal. * Grade I diastolic dysfunction, (abnormal relaxation pattern). * The left ventricular wall motion is normal. Right Ventricle * The right ventricle is normal in size and function. * The right ventricular systolic function is normal as assessed by tricuspid annular plane systolic excursion (TAPSE) (normal >1.5 cm). Atria * The left atrial size is normal. * Right atrial size is normal. Mitral Valve * The mitral valve anatomy is normal. * Significant mitral regurgitation is absent. Tricuspid Valve * The tricuspid valve is not well visualized, but is grossly normal. * Significant tricuspid regurgitation is absent. Aortic Valve * The aortic valve is normal in structure and function. * No hemodynamically significant valvular aortic stenosis. * There is no significant aortic regurgitation. Great Vessels * The aortic root is normal size. Pericardium/Pleural * There is no pericardial effusion. MMode 2D Measurements and Calculations IVSd 0.96 cm IVSs 1.4 cm LVIDd 4.0 cm LVIDs 2.4 cm LVPWd 1.2 cm LVPWs 1.8 cm IVS/LVPW 0.80 FS 40.4 % EDV(Teich) 68.3 ml ESV(Teich) 19.3 ml EF(Teich) 71.7 % EDV(cubed) 62.0 ml ESV(cubed) 13.1 ml EF(cubed) 78.8 % % IVS thick 49.1 % % LVPW thick 50.8 % LV mass(C)d 139.7 grams LV mass(C)dI 66.1 grams/m\S\2 LV mass(C)s 136.0 grams LV mass(C)sI 64.4 grams/m\S\2 SV(Teich) 49.0 ml SI(Teich) 23.2 ml/m\S\2 SV(cubed) 48.9 ml SI(cubed) 23.1 ml/m\S\2 Ao root diam 3.6 cm Ao root area 10.1 cm\S\2 ACS 2.4 cm LA dimension 3.0 cm asc Aorta Diam 4.0 cm LA/Ao 0.84 LVAd ap4 25.9 cm\S\2 LVLd ap4 8.3 cm EDV(MOD-sp4) 72.5 ml EDV(sp4-el) 69.0 ml LVAs ap4 14.5 cm\S\2 LVLs ap4 7.3 cm ESV(MOD-sp4) 26.9 ml ESV(sp4-el) 24.5 ml EF(MOD-sp4) 62.9 % EF(sp4-el) 64.4 % LVAd ap2 19.4 cm\S\2 LVLd ap2 7.4 cm EDV(MOD-sp2) 44.1 ml EDV(sp2-el) 43.5 ml LVAs ap2 11.2 cm\S\2 LVLs ap2 6.4 cm ESV(MOD-sp2) 19.3 ml ESV(sp2-el) 16.7 ml EF(MOD-sp2) 56.2 % EF(sp2-el) 61.7 % LVLd %diff -12.55 % EDV(MOD-bp) 58.3 ml LVLs %diff -13.81 % ESV(MOD-bp) 24.2 ml EF(MOD-bp) 58.5 % SV(MOD-sp4) 45.6 ml SI(MOD-sp4) 21.6 ml/m\S\2 SV(MOD-sp2) 24.8 ml SI(MOD-sp2) 11.7 ml/m\S\2 SV(MOD-bp) 34.1 ml SI(MOD-bp) 16.2 ml/m\S\2 SV(sp4-el) 44.4 ml SI(sp4-el) 21.0 ml/m\S\2 SV(sp2-el) 26.8 ml SI(sp2-el) 12.7 ml/m\S\2 Doppler Measurements and Calculations MV E max candace 64.0 cm/sec MV A max candace 87.3 cm/sec MV E/A 0.73 MV dec time 0.29 sec Ao V2 max 116.2 cm/sec Ao max PG 5.4 mmHg Ao max PG (full) 2.3 mmHg LV V1 max PG 3.1 mmHg LV V1 max 87.8 cm/sec PA V2 max 91.2 cm/sec PA max PG 3.3 mmHg PI max candace 167.2 cm/sec PI max PG 11.2 mmHg PI dec slope 176.9 cm/sec\S\2 PI P1/2t 276.9 msec
[2017-07-09] MEDS ORDERED: BISACODYL 10 MG SUPP PR STA (14:09)
[2017-07-09] MEDS ORDERED: SENN8.6T7 PO (14:19)
--- NOTE | 2017-07-09 14:24 | Discharge Instructions ---
Discharge Instructions Date of Service Jul 09, 2017. Admission Reason for Admission: Spinal Stenosis Discharge Discharge Diagnosis / Problem: Spinal Stenosis S/P Repair Discharge Goals Goal(s): Improve function, Increase independence Activity Recommendations Activity Limitations: per Instructions/Follow-up section (Per Dr. Cortes) . Instructions / Follow-Up Instructions / Follow-Up COPD - Low Oxygen Levels: - Continue your inhalers when needed for SOB. - Recommend to get an overnight oximetry study to check your oxygen levels at night when you are sleeping - since you couldn't stand CPAP before you may benefit from at least oxygen at night to help your breathing - -- Please discuss this with your family doctor Bowel Regimen: - Sent a prescription for Senna (this is a laxative to use when on pain medication). Recommend to stay active as tolerated to keep your bowels moving. - Can use Miralax daily or even twice daily to help with bowel movements. Continue to stay hydrated and can increase fiber in your diet. - It will be important to avoid constipation as this can make your back pain worse. Current Hospital Diet Patient's current hospital diet: Diabetes Type 2 Diet Discharge Diet Recommended Diet: Diabetes Type 2 Diet Procedures Procedures Performed: #1 lumbar decompression medial facetectomy foraminotomies L4 5 L5-S1. #2 posterior spinal fusion L5-S1. #3 placement posterior instrumentation L5-S1. #4 interbody fusion L5-S1. #5 placement peek cage 11 x 22 mm L5-S1. #6 placement of locally harvested morcellized autograft in the posterior lateral gutters. #7 placement infuse collagen sponge combined mass graft in the posterior lateral gutters and osteo-lamp bone graft in the interbody space. Pending Studies Studies pending at discharge: no Laboratory Results Hemoglobin A1c Test 07/09/17 05:29 Range/Units Estimated Average Glucose 160 mg/dl Hemoglobin A1c 7.2 H 4.5-5.6 % Lipid Panel Test 07/08/17 13:10 Range/Units Triglycerides Level 88 0-150 mg/dl Cholesterol Level 147 0-200 mg/dl HDL Cholesterol 44 mg/dl Cholesterol/HDL Ratio 3.3 LDL Cholesterol, Calculated 85 mg/dl Medical Emergencies . Who to Call and When: Medical Emergencies: If at any time you feel your situation is an emergency, please call 911 immediately. . Non-Emergent Contact Non-Emergency issues call your: Primary Care Provider Call Non-Emergent contact if: you have a fever, your pain is concerning you, you have any medication questions . . "Provider Documentation" section prepared by Chantelle Serrano. .
--- NOTE | 2017-07-09 16:52 | Hospitalist Progress Note ---
Hospitalist Progress Note Date of Service Jul 09, 2017. (Chantelle Serrano PA-C) Subjective Pt evaluation today including: conversation w/ patient, physical exam, chart review, lab review, review of studies, review of inpatient medication list Patient seen and evaluated. Currently on RA with no respiratory distress. Patient carries a diagnosis of COPD and MARGA who was actually prescribed CPAP at night but could not tolerate it. Suspect between pain medication, atelectasis, and COPD/MARGA he had an acute hypoxic episode. Possible some CO2 narcosis. Did not require BiPAP last night. No wheezing on examination today and does not appear to be in an exacerbation. Watched him ambulate to the bathroom and no dyspnea seen. Constitutional: No fever, No chills Respiratory: No cough, No dyspnea on exertion, No dyspnea at rest Cardiovascular: No chest pain Abdomen: + constipation, No pain, No nausea, No vomiting, No diarrhea Musculoskeletal: No swelling, No calf pain Male : No dysuria Heme: No abnormal bleeding/bruising Skin: No rash (Chantelle Serrano, YAMILETC) Medications Current Inpatient Medications Medications (Trade) Dose Ordered Sig/Zenon Route Start Time Stop Time Status Last Admin Dose Admin Promethazine HCl 12.5 mg/Sodium Chloride 50.5 ml @ 202 mls/hr Q6H PRN IV 07/06/17 09:30 08/05/17 09:29 Ondansetron HCl (Zofran Inj) 4 mg Q6H PRN IV 07/06/17 09:30 08/05/17 09:29 Metoclopramide HCl (Reglan Inj) 10 mg Q6H PRN IV 07/06/17 09:30 08/05/17 09:29 Lorazepam (Ativan Tab) 0.5 mg Q8H PRN PO 07/06/17 09:30 08/05/17 09:29 Lorazepam 0.5 mg/ Syringe 0.25 ml @ 1 mls/min Q8H PRN IV 07/06/17 09:30 08/05/17 09:29 Pneumococcal Polysaccharide Vaccine 1 ea PRN PRN N/A 07/06/17 09:30 08/05/17 09:29 Influenza Virus Vacc Triv Types A&B 1 ea PRN PRN N/A 07/06/17 09:30 08/05/17 09:29 Polyethylene (Miralax Powder Packet) 17 gm Q6 PO 07/08/17 06:00 08/07/17 05:59 07/09/17 12:59 17 GM Bisacodyl (Dulcolax Supp) 10 mg DAILY PRN IN 07/06/17 09:30 08/05/17 09:29 Magnesium Hydroxide (Milk Of Magnesia Susp) 30 ml DAILY PRN PO 07/06/17 09:30 08/05/17 09:29 Hydromorphone HCl (Dilaudid Inj) 0.5 mg Q3H PRN IV 07/07/17 06:00 07/21/17 05:59 Oxycodone HCl (Roxicodone Immediate Rel Tab) 5-10mg prn moderate to sev... Q4H PRN PO 07/07/17 06:00 07/21/17 05:59 07/08/17 04:54 10 MG Acetaminophen (Tylenol Tab) 1,000 mg Q8H PRN PO 07/06/17 09:30 08/05/17 09:29 07/09/17 03:30 1,000 MG Acetaminophen 100 ml @ 400 mls/hr Q8H PRN IV 07/06/17 09:30 08/05/17 09:29 Naloxone HCl (Narcan Inj) 0.1 mg Q5M PRN IV 07/06/17 09:30 08/05/17 09:29 Senna/Docusate Sodium (Senokot S Tab) 2 tab HS PO 07/06/17 21:00 08/05/17 20:59 07/08/17 20:16 2 TAB Sodium Biphosphate/ Sodium Phosphate (Fleet Enema) 132 ml ONE PRN IN 07/06/17 09:30 08/05/17 09:29 Hydroxyzine HCl (Vistaril Tab) 25 mg Q8H PRN PO 07/06/17 09:30 08/05/17 09:29 Al Hydroxide/Mg Hydroxide (Maalox Susp) 30 ml Q6H PRN PO 07/06/17 09:30 08/05/17 09:29 Famotidine (Pepcid Tab) 20 mg Q12H PRN PO 07/06/17 09:30 08/05/17 09:29 Diphenhydramine HCl (Benadryl Cap) 25 mg Q6H PRN PO 07/06/17 09:30 08/05/17 09:29 Albuterol (Ventolin Hfa Inhaler) 2 puffs Q6H PRN INH 07/06/17 09:30 08/05/17 09:29 Aspirin (Ecotrin Tab) 81 mg QAM PO 07/07/17 09:00 08/06/17 08:59 07/09/17 08:28 81 MG Atorvastatin Calcium (Lipitor Tab) 20 mg QPM PO 07/06/17 21:00 08/05/17 20:59 07/08/17 20:15 20 MG Cetirizine HCl (zyrTEC TAB) 10 mg DAILY PRN PO 07/06/17 09:30 08/05/17 09:29 Cyclobenzaprine HCl (Flexeril Tab) 10 mg TID PRN PO 07/06/17 09:30 08/05/17 09:29 07/08/17 04:53 10 MG Fluoxetine HCl (Prozac Cap) 40 mg QAM PO 07/07/17 09:00 08/06/17 08:59 07/09/17 08:29 40 MG Gabapentin (Neurontin Cap) 300 mg QAM PO 07/07/17 09:00 08/06/17 08:59 07/09/17 08:28 300 MG Magnesium Oxide (Mag-Ox Tab) 400 mg QAM PO 07/07/17 09:00 08/06/17 08:59 07/09/17 08:28 400 MG Trazodone HCl (Desyrel Tab) 50 mg QPM PO 07/06/17 21:00 08/05/17 20:59 07/08/17 20:16 50 MG Hydromorphone HCl (Dilaudid Inj) 1 mg Q3H PRN IV 07/07/17 06:00 07/21/17 05:59 (Chantelle Serrano, HALEIGH) Objective Vital Signs Date Time Temp Pulse Resp B/P (MAP) Pulse Ox O2 Delivery O2 Flow Rate FiO2 07/09/17 15:24 37.0 81 20 117/78 (91) 95 Room Air 07/09/17 13:08 36.6 75 18 97 Room Air 07/09/17 12:05 36.6 75 18 128/69 (88) 97 07/09/17 12:00 92 Room Air 07/09/17 10:50 89 92 07/09/17 08:32 36.8 88 24 122/69 (86) 96 07/09/17 08:00 91 Room Air 07/09/17 04:41 93 2.0 07/09/17 03:35 36.9 85 23 116/66 (83) 87 Room Air 07/09/17 03:30 Nasal Cannula 2.0 07/09/17 00:00 Nasal Cannula 2.0 07/08/17 23:40 37.0 81 22 137/70 (92) 95 Nasal Cannula 2.0 07/08/17 20:16 Nasal Cannula 2.0 07/08/17 19:57 36.8 90 20 136/79 (98) 95 Nasal Cannula 2.0 (Chantelle Serrano PA-C) Physical Exam General Appearance: WD/WN, no apparent distress Eyes: sclerae normal ENT: hearing grossly normal Neck: supple, no JVD, trachea midline Respiratory/Chest: lungs clear, normal breath sounds, no respiratory distress, no accessory muscle use Cardiovascular: regular rate, rhythm, no gallop, no murmur Abdomen: normal bowel sounds, non tender, soft Extremities: no pedal edema, no calf tenderness Neurologic/Psychiatric: alert, oriented x 3 Skin: normal color, warm/dry (Chantelle Serrano, JENNIFER-C) Laboratory Results Last 24 Hours Test 07/08/17 20:38 07/09/17 05:29 Bedside Glucose 107 mg/dl White Blood Count 9.93 K/uL Red Blood Count 4.48 M/uL Hemoglobin 12.8 g/dL Hematocrit 40.3 % Mean Corpuscular Volume 90.0 fL Mean Corpuscular Hemoglobin 28.6 pg Mean Corpuscular Hemoglobin Concent 31.8 g/dl Platelet Count 184 K/uL Mean Platelet Volume 9.7 fL Neutrophils (%) (Auto) 65.4 % Lymphocytes (%) (Auto) 16.6 % Monocytes (%) (Auto) 13.8 % Eosinophils (%) (Auto) 3.6 % Basophils (%) (Auto) 0.2 % Neutrophils # (Auto) 6.49 K/uL Lymphocytes # (Auto) 1.65 K/uL Monocytes # (Auto) 1.37 K/uL Eosinophils # (Auto) 0.36 K/uL Basophils # (Auto) 0.02 K/uL RDW Standard Deviation 47.0 fL RDW Coefficient of Variation 14.4 % Immature Granulocyte % (Auto) 0.4 % Immature Granulocyte # (Auto) 0.04 K/uL Sodium Level 136 mmol/L Potassium Level 4.2 mmol/L Chloride Level 101 mmol/L Carbon Dioxide Level 29 mmol/L Anion Gap 6.0 mmol/L Blood Urea Nitrogen 15 mg/dl Creatinine 1.30 mg/dl Est Creatinine Clear Calc Drug Dose 69.0 ml/min Estimated GFR () 68.7 Estimated GFR (Non- 59.3 BUN/Creatinine Ratio 11.8 Random Glucose 98 mg/dl Estimated Average Glucose 160 mg/dl Hemoglobin A1c 7.2 % Calcium Level 8.6 mg/dl Magnesium Level 2.2 mg/dl Total Bilirubin 0.6 mg/dl Aspartate Amino Transf (AST/SGOT) 20 U/L Alanine Aminotransferase (ALT/SGPT) 19 U/L Alkaline Phosphatase 60 U/L Total Protein 6.9 gm/dl Albumin 3.1 gm/dl Globulin 3.8 gm/dl Albumin/Globulin Ratio 0.8 (Chantelle Serrano, PA-C) Assessment and Plan 61-year-old man with past medical history of CAD status post CABG, multiple stents last for 3 years ago, patient also has dyslipidemia and diabetes mellitus type 2 on oral hypoglycemic, patient was diagnosed with sleep apnea but noncompliant with CPAP machine. Status post L5-S1 decompression and fusion , was found to be hypoxic and slightly lethargic today. Metabolic Encephalopathy 2/2 Hypoxia: RESOLVED Acute Hypoxic Respiratory Failure 2/2 MARGA, CO2 Narcosis, COPD: - Patient has known COPD and MARGA who was prescribed CPAP but states he cannot tolerate this - this likely occured because of pain medication, MARGA, and COPD - probably element of CO2 narcosis; Imaging does so some atelectasis as well - Patient is currently appropriately oxygenating on RA, no wheezing on exam - does not appear to be in a COPD exacerbation - Plan to continue previous prescribed PRN inhaler - Recommend outpatient overnight pulse ox study or other sleep study to re- assess MARGA - may benefit from at least supplement O2 by NC since he cannot stand CPAP Constipation: - Senna x 7 days; Miralax 1-2 times a day Disposition: - Cleared by medicine for D/C home Discharge planning: home with home health (Chantelle Serrano, PAAmarilysC) Attending Attestation - Pt seen/examined, chart reviewed, care plan d/w JENNIFER Serrano. I agree w/ the mendez components of her documentation. Pt has not had bowel movement since 4-5 days ago. Despite such has been having flatus; no nausea/emesis; no abd pain; eating fine. Denies cough, wheeze, dyspnea, orthopnea. Reports known h/o MARGA -- used CPAP for <1 year and returned it; couldn't tolerate it. VSS no fever o2 sats wnl in RA gen - NAD neck - no JVD heart - RRR, s1, s2, no murmur lungs - CTA b/l, scant wheeze anterior left chest abd - minimally distended but NT, BS+, no HSM ext - no edema A/P: 1. mild transient hypoxia - suspect it was hypoventilation in the setting of narcotic pain medications for his back and untreated MARGA - resolved. 2. untreated MARGA - could not tolerate CPAP - recommend outpatient overnight oximetry study to see if he qualifies for night-time NC O2. 3. constipation - dulcolax suppos x 1 now; agree with bowel regimen at home. No evidence of ileus (no nausea, emesis, feeding intolerance; IS passing flatus ; etc). 4. h/o COPD - w/o exacerbation from medical standpoint can transition home today would like him to have bowel movement prior to going home; again dulcolax suppos x 1 see d/c instructions from the medical team Zane Sarmiento MD (Zane Sarmiento MD)
== END 2017-07-09 18:40 | disposition home or self-care (01) | DRG 453 ==
LOC: C.ACU 06:01 → C.3E 07:30 → ENRESERV 09:54 → C.2T 07-08 13:48
PROVIDERS: ADMIT Orthopaedic Surgery Orthopaedic Surgery of the Spine; ATTEND Orthopaedic Surgery Orthopaedic Surgery of the Spine
PROC: 0SG0071 Fusion of Lumbar Vertebral Joint with Autologous Tissue Substitute, Posterior Approach, Posterior Column, Open Approach (ICD-10-PCS; principal; 2017-07-06 07:45)
PROC: 0ST40ZZ Resection of Lumbosacral Disc, Open Approach (ICD-10-PCS; principal; 2017-07-06 07:45)
PROC: 0SG30AJ Fusion of Lumbosacral Joint with Interbody Fusion Device, Posterior Approach, Anterior Column, Open Approach (ICD-10-PCS; principal; 2017-07-06 07:45)
PROC: 01NB0ZZ Release Lumbar Nerve, Open Approach (ICD-10-PCS; principal; 2017-07-06 07:45)
DX: M48.061 Spinal stenosis, lumbar region without neurogenic claudication (principal); J96.01 Acute respiratory failure with hypoxia; G93.41 Metabolic encephalopathy; J98.11 Atelectasis; E66.2 Morbid (severe) obesity with alveolar hypoventilation; T40.2X5A Adverse effect of other opioids, initial encounter; Y92.230 Patient room in hospital as the place of occurrence of the external cause; M47.816 Spondylosis without myelopathy or radiculopathy, lumbar region; K59.00 Constipation, unspecified; J44.9 Chronic obstructive pulmonary disease, unspecified; I25.10 Atherosclerotic heart disease of native coronary artery without angina pectoris; I11.0 Hypertensive heart disease with heart failure; I50.9 Heart failure, unspecified; E11.40 Type 2 diabetes mellitus with diabetic neuropathy, unspecified; E78.5 Hyperlipidemia, unspecified; I73.9 Peripheral vascular disease, unspecified; F41.9 Anxiety disorder, unspecified; F32.9 Major depressive disorder, single episode, unspecified; F17.290 Nicotine dependence, other tobacco product, uncomplicated; Z68.31 Body mass index [BMI] 31.0-31.9, adult; Z79.02 Long term (current) use of antithrombotics/antiplatelets; Z95.1 Presence of aortocoronary bypass graft; Z95.5 Presence of coronary angioplasty implant and graft; Z79.82 Long term (current) use of aspirin; Z79.84 Long term (current) use of oral hypoglycemic drugs; Z79.899 Other long term (current) drug therapy